=== PATIENT | male | born 1965 | race Caucasian/White ===

== ENCOUNTER 2017-01-03 20:57 | Emergency (ER) | payer BC ==
[2017-01-03 21:07] VITALS: BP 126/71; PULSE 71; TEMP 98.1; BMI 33.0
[2017-01-03] MEDS ORDERED: KETOROLAC TROMETHAMINE 60 MG/2 ML VIAL IM ONE (22:49)
--- NOTE | 2017-01-03 22:49 | PDOC ---
History of Present Illness - History of Present Illness Initial Comments: 01/03/17 23:24 The patient is a 51 year old male, with a significant past medical history of upper back spasm (reportedly taking diazepam as needed) and Afib x3 (required 2 cardioverts, last time 3 years ago) who presents to the emergency department with left lower back pain today. The patient reports going to a beach 2 weeks ago where "the waves were really rough". He reports noticing a "twinge" of pain to his left lateral hip, superiorly the following day. 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 The patient also reports riding in a 50-mile bike ride 2 days ago, but denies feeling pain during his ride. He localized his pain to "just left" of the lower spine. He also reports left buttock tenderness. He reports taking "one and a half of the old diazepam" with minimal pain relief. He also reports taking Naproxen today and 600mg of ibuprofen last night with minimal relief. He denies chest pain, shortness of breath, headache and dizziness. He denies fever, chills, nausea, vomit, diarrhea and constipation. He denies dysuria, frequency, urgency and hematuria. Allergies: Penicillins Past surgical history: knee arthroscopy Social history: Pt denies toxic habits <Toshia Winslow - Last Filed: 01/03/17 23:24> <Amanda Ku - Last Filed: 01/04/17 01:02> - General Chief Complaint: Back Pain Stated Complaint: PAIN Time Seen by Provider: 01/03/17 22:12 Past History <Toshia Winslow - Last Filed: 01/03/17 23:24> - Past Medical History Cardiac Disorders: Yes (a fib cardioverted x's 2) - Suicide/Smoking/Psychosocial Hx Smoking History: Former smoker Have you smoked in the past 12 months: No Information on smoking cessation initiated: No <Amanda Ku - Last Filed: 01/04/17 01:02> - Past Medical History Allergies/Adverse Reactions: Allergies Allergy/AdvReac Type Severity Reaction Status Date / Time Penicillins Allergy Verified 01/03/17 21:02 Home Medications: Ambulatory Orders Diazepam [Valium] 7.5 mg PO ONCE 01/03/17 Ibuprofen [Motrin -] 600 mg PO TID PRN #21 tablet 01/04/17 Review of Systems - Review of Systems Able to Perform ROS?: Yes Comments:: 01/03/17 23:29 CONSTITUTIONAL: Absent: fever, no chills, no fatigue EYES: Absent: visual changes ENT: Absent: ear pain, no sore throat CARDIOVASCULAR: Absent: chest pain, no palpitations RESPIRATORY: Absent: cough, no SOB GI: Absent: abdominal pain, no nausea, no vomiting, no constipation, no diarrhea GENITOURINARY: Absent: dysuria, no frequency, no hematuria MUSCULOSKELETAL: (+) low back pain, Absent: no arthralgia, no myalgia SKIN: Absent: rash NEURO: Absent: headache <Toshia Winslow - Last Filed: 01/03/17 23:24> *Physical Exam - Vital Signs Last Vital Signs Temp Pulse Resp BP Pulse Ox 98.1 F 71 16 126/71 98 01/03/17 21:05 01/03/17 21:05 01/03/17 21:05 01/03/17 21:05 01/03/17 21:05 - Physical Exam Comments: 01/03/17 23:30 GENERAL: Well-appearing, well-nourished. No apparent distress. HEENT: Normocephalic, atraumatic. PERRL, EOM intact. CARDIOVASCULAR: Normal S1, S2. Regular rate and rhythm. PULMONARY: Clear to auscultation bilaterally. ABDOMEN: Soft, non-distended, non-tender. EXTREMITIES: Normal ROM in all four extremities. No gross deformities. MUSCULOSKELETAL: (+) mild paraspinal ttp to the left of the L4L5 region. No bony spinal tenderness. SKIN: Warm, dry. No rash NEUROLOGICAL: No focal neurological deficits. <Toshia Winslow - Last Filed: 01/03/17 23:24> - Vital Signs Last Vital Signs Temp Pulse Resp BP Pulse Ox 98.1 F 71 16 126/71 98 01/03/17 21:05 01/03/17 21:05 01/03/17 21:05 01/03/17 21:05 01/03/17 21:05 <Amanda Ku - Last Filed: 01/04/17 01:02> ED Treatment Course - Medications Given in the ED: ED Medications Discontinued Medications Generic Name Dose Route Start Last Admin Trade Name Riya PRN Reason Stop Dose Admin Diazepam 5 mg 01/03/17 22:50 01/03/17 23:01 Valium - PO 01/03/17 22:51 5 mg ONCE ONE Administration Ketorolac Tromethamine 60 mg 01/03/17 22:49 01/03/17 23:01 Toradol Injection - IM 01/03/17 22:50 60 mg ONCE ONE Administration Oxycodone/Acetaminophen 1 combo 01/03/17 22:50 01/03/17 23:01 Percocet 5/325 - PO 01/03/17 22:51 1 combo ONCE ONE Administration <Toshia Winslow - Last Filed: 01/03/17 23:24> *DC/Admit/Observation/Transfer - Attestations Scribe Attestion: 01/03/17 23:31 Documentation prepared by Toshia Winslow, acting as healthcare or medical for Amanda Ku MD <Toshia Winslow - Last Filed: 01/03/17 23:24> <Amanda Ku - Last Filed: 01/04/17 01:02> Diagnosis at time of Disposition: Low back pain Qualifiers: Chronicity: unspecified Back pain laterality: left Sciatica presence: without sciatica Qualified Code(s): M54.5 - Low back pain - Discharge Dispostion Disposition: HOME Condition at time of disposition: Stable - Prescriptions Prescriptions: Ibuprofen [Motrin -] 600 mg PO TID PRN #21 tablet PRN Reason: Back Pain - Referrals Referrals: Corrina Mclean MD [Staff Physician] - Earl Burrell MD [Staff Physician] - - Patient Instructions Printed Discharge Instructions: DI for Low Back Pain Additional Instructions: please follow up with your physician return for worsening symptoms
[2017-01-03] MEDS ORDERED: diazePAM 5 MG TABLET PO ONE (22:50)
[2017-01-03] MEDS ORDERED: KETOROLAC TROMETHAMINE 60 MG/2 ML VIAL ONE (22:55)
[2017-01-03] MEDS ORDERED: diazePAM 5 MG TABLET ONE (22:55)
== END 2017-01-04 01:25 | disposition home or self-care (01) ==
LOC: JER 20:57
PROC: 3E0233Z Introduction of Anti-inflammatory into Muscle, Percutaneous Approach (ICD-10-PCS; principal; 2017-01-03)
DX: M54.5 Low back pain (principal); I48.91 Unspecified atrial fibrillation; Z88.0 Allergy status to penicillin
CPT/HCPCS: 99282-25

== ENCOUNTER 2017-02-09 13:32 | Emergency (ER) | payer BC ==
[2017-02-09 13:46] VITALS: BP 148/92; PULSE 67; TEMP 98.1; BMI 31.3
[2017-02-09] MEDS ORDERED: KETOROLAC TROMETHAMINE 60 MG/2 ML VIAL IM ONE (14:49)
[2017-02-09] MEDS ORDERED: KETOROLAC TROMETHAMINE 60 MG/2 ML VIAL ONE (14:51)
--- NOTE | 2017-02-09 15:02 | PDOC ---
History of Present Illness - General Chief Complaint: Pain Stated Complaint: BACK SPASMS Time Seen by Provider: 02/09/17 14:10 History Source: Patient Exam Limitations: No Limitations Past History - Travel Traveled outside of the country in the last 30 days: No Close contact w/someone who was outside of country & ill: No - Past Medical History Allergies/Adverse Reactions: Allergies Allergy/AdvReac Type Severity Reaction Status Date / Time Penicillins Allergy Verified 02/09/17 13:43 Home Medications: Ambulatory Orders NK [No Known Home Medication] 02/09/17 Cardiac Disorders: Yes (a fib cardioverted x's 2) COPD: No Other medical history: MUSCLE SPASMS. - Suicide/Smoking/Psychosocial Hx Smoking History: Never smoked Have you smoked in the past 12 months: No Hx Alcohol Use: No Drug/Substance Use Hx: No Substance Use Type: None Review of Systems - Review of Systems Able to Perform ROS?: Yes Is the patient limited Japanese proficient: No *Physical Exam - Vital Signs Last Vital Signs Temp Pulse Resp BP Pulse Ox 98.1 F 67 18 148/92 99 02/09/17 13:42 02/09/17 13:42 02/09/17 13:42 02/09/17 13:42 02/09/17 13:42 ED Treatment Course - Medications Given in the ED: ED Medications Discontinued Medications Generic Name Dose Route Start Last Admin Trade Name Riya PRN Reason Stop Dose Admin Ketorolac Tromethamine 60 mg 02/09/17 14:49 02/09/17 14:54 Toradol Injection - IM 02/09/17 14:50 60 mg ONCE ONE Administration *DC/Admit/Observation/Transfer Diagnosis at time of Disposition: Upper back pain on left side - Discharge Dispostion Disposition: HOME Condition at time of disposition: Good Admit: No - Referrals Referrals: STAFF,NOT ON [Primary Care Provider] - - Patient Instructions Printed Discharge Instructions: Thoracic Back Pain Additional Instructions: You have a spasm in your upper back. You were given a shot of Toradol in the ED. Please do not take ibuprofen today. Starting tomorrow if you still have spasm, you may take 800mg ibuprofen every 8 hours. Apply heat to the area. You may take one of your home Valium to help with the spasm. Do not drive after taking this medication as it may make you sleepy. Follow up with your primary care doctor. Return to the ED if you have worsening pain, fevers, chills, or any changes in your symptoms. - Post Discharge Activity Forms/Work/School Notes: Back to Work
== END 2017-02-09 15:08 | disposition home or self-care (01) ==
LOC: JERFT 13:32
PROC: 3E0233Z Introduction of Anti-inflammatory into Muscle, Percutaneous Approach (ICD-10-PCS; principal; 2017-02-09)
DX: M62.830 Muscle spasm of back (principal)
CPT/HCPCS: 99281-25

== ENCOUNTER 2020-09-30 19:52 | Emergency (ER) | payer BC, OTHER ==
[2020-09-30 20:16] VITALS: BP 127/85; PULSE 78; TEMP 98.2; BMI 30.5
[2020-09-30] MEDS ORDERED: SULFAMETHOXAZOLE/TRIMETHOPRIM 800MG/160MG D.S. TABLET PO ONE (21:27)
[2020-09-30] MEDS ORDERED: SULFAMETHOXAZOLE/TRIMETHOPRIM 800MG/160MG D.S. TABLET ONE (21:45)
== END 2020-09-30 21:49 | disposition home or self-care (01) ==
LOC: JERFT 19:52
PROC: 0H9AXZZ Drainage of Inguinal Skin, External Approach (ICD-10-PCS; principal; 2020-09-30)
DX: L02.416 Cutaneous abscess of left lower limb (principal); L03.116 Cellulitis of left lower limb
CPT/HCPCS: 87070; 87186; 87205; 99283-25